=== PATIENT | female | born 1960 | race Caucasian/White ===

== ENCOUNTER 2022-02-03 15:18 | Emergency (ER) | payer BC, SELFPAY ==
[2022-02-03 15:29] VITALS: BP 118/78; PULSE 85; RESP 18; TEMP 36.8; O2SAT 96; BMI 21.9
[2022-02-03 15:30] VITALS: BP 118/78; PULSE 88; RESP 19; O2SAT 99
[2022-02-03 16:00] VITALS: BP 123/74; PULSE 123; O2SAT 98
--- NOTE | 2022-02-03 16:19 | ED.ARRPALP ---
HPI - Arrhythmia/Palpitations General Chief Complaint: Arrhythmia/Palpitations Stated Complaint: HIGH HEART RATE,LEFT ARM PAIN Time Seen by Provider: 02/03/22 15:46 History of Present Illness HPI narrative: This 61-year-old female comes in reporting some chest tightness in the left upper anterior chest and some tingling and symptoms in her left arm. She states that she bumped her left elbow about a week ago and triggered a Zinger from the ulnar nerve. Since then she has been having some of these symptoms. She does not have any nausea, vomiting, lightheadedness, shortness of breath, or diaphoresis. She does have good exercise tolerance and states that she frequently runs for exercise. She does not have any cardiac risk factors except states that her mother did have a valve replacement and coronary artery disease but she had diabetes and as a child had rheumatic fever. She states that she has been under stress at work and had an episode of chest discomfort and noted on her watch that her heart rate had increased to around 120 beats per minute. She arrives here with normal vital signs and heart rate around 80 beats per minute. She states that the chest discomfort is not reproducible with a deep breath, palpation, or or with certain movements. Related Data Home Medications Medication Instructions Recorded Confirmed No Known Home Medications 02/03/22 02/03/22 Allergies Allergy/AdvReac Type Severity Reaction Status Date / Time No Known Drug Allergies Allergy Verified 02/03/22 15:29 Review of Systems Status of ROS: Reports: 10 or more systems reviewed and unremarkable except as noted in History and below Narrative: Constitutional: No fevers, no weight gain or loss. Eyes: No discharge. No vision changes. HENT: No congestion, no sore throat, no ear pain. Cardiovascular: No palpitations. Chest discomfort as described above. Respiratory: No shortness of breath, no wheezes, no cough. Gastrointestinal: No abdominal pain, no vomiting, no diarrhea. Genitourinary: No dysuria, no hematuria. Musculoskeletal: Normal range of motion. Skin: No rashes, no pruritis. Neurological: No dizziness, weakness, sensory change, speech change. Endo/Heme/Allergies: No bruising or bleeding. No polydipsia. Pysch: no suicidality, no anxiety, no insomnia. All other systems reviewed and are negative. PFSH PFSH Social History Smoking Status: Never smoker Do you use any of these nicotine containing products: None Second hand tobacco smoke exposure: No How often do you have a drink containing alcohol: 4 or more times a week How many standard drinks containing alcohol do you have on a typical day: 1 or 2 How often do you have six or more drinks on one occasion: Never AUDIT-C Alcohol total score: 4 Non-prescribed substance use: denies use service: No Exam Narrative: Exam Narrative: Constitutional: Well-developed, well-nourished, no acute distress. HEENT: Normocephalic, atraumatic. Neck: Normal range of motion. Nontender. Supple. Heart: Regular. No murmurs. Normal rate. Intact distal pulses. Lungs: Clear to auscultation. No chest discomfort. No wheezes, rhonchi, or rales. Abdomen: Normal bowel sounds. Nontender. No rebound tenderness. Genitalia: Deferred. Back: No midline tenderness. Normal range of motion. Extremities: Normal range of motion. No injury. Skin: Intact. No rash. Warm. No erythema or pallor. Neurologic: No altered sensation. No weakness. Alert and oriented. Psychiatric: No suicidality. No anxiety or depression. No insomnia. Nursing notes and vitals signs are reviewed. Const: Vital Signs, click to edit/add: Vital Signs - 24 hr 02/03/22 15:29 Temperature 98.2 F Pulse Rate [Apical ] 85 Respiratory Rate 18 Blood Pressure [Ri ght Upper Arm] 118/78 Pulse Oximetry 96 Oxygen Delivery Me thod Room Air Course Vital Signs Vital signs: Initial Vital Signs Temperature 98.2 F 02/03/22 15:29 Temperature Source Temporal Artery Scan 02/03/22 15:29 Pulse Rate 85 02/03/22 15:29 Pulse Rhythm 02/03/22 15:29 Respiratory Rate 18 02/03/22 15:29 Blood Pressure 118/78 02/03/22 15:29 Blood Pressure Mean 91 02/03/22 15:29 Pulse Oximetry 96 02/03/22 15:29 Oxygen Delivery Method 02/03/22 15:29 Vital Signs Temperature 98.2 F 02/03/22 15:29 Pulse Rate 85 02/03/22 15:29 Respiratory Rate 18 02/03/22 15:29 Blood Pressure 118/78 02/03/22 15:29 Pulse Oximetry 96 02/03/22 15:29 Oxygen Delivery Method 02/03/22 15:29 Temperature 98.2 F 02/03/22 15:29 Pulse Rate 85 02/03/22 15:29 Respiratory Rate 18 02/03/22 15:29 Blood Pressure 118/78 02/03/22 15:29 Pulse Oximetry 96 02/03/22 15:29 Oxygen Delivery Method 02/03/22 15:29 MDM - Arrhythmia/Palpitations MDM Narrative Medical decision making narrative: This patient comes in with concern about some chest discomfort and tingling sensation in her left arm as described above. EKG today shows normal sinus rhythm without any ST or T-wave abnormalities. The patient has good exercise tolerance and frequently runs without any symptoms. Lab results today also returned with normal findings. Her troponin returns at 0. She was pleased with these results. She is okay to return home to continue current plans. More likely her pain is chest wall pain or atypical chest pain. Lab Data Labs: Lab Results 02/03/22 02/03/22 02/03/22 Range/Units 16:35 16:35 16:35 WBC 6.25 (4.50-11.00) K/uL RBC 4.22 (4.00-5.20) m/uL Hgb 12.9 (12.0-16.0) gm/dL Hct 37.6 (33.0-51.0) % MCV 89 (80-100) fL MCH 31 (26-34) pg MCHC 34 (32-36) gm/dL RDW Coeff of Yesi 12.0 (11.5-15.5) % Plt Count 194 (140-440) K/uL Neut % (Auto) 71.6 (42.0-72.0) % Lymph % (Auto) 19.5 L (20-44) % [place] % (Auto) 7.4 (0.0-11.0) % Eos % (Auto) 1.0 (0.0-7.0) % Baso % (Auto) 0.3 (0.0-3.0) % Neut # (Auto) 4.48 (1.7-7.0) K/uL Lymph # (Auto) 1.20 (0.90-2.90) K/uL [place] # (Auto) 0.50 (0.00-0.90) K/UL Eos # (Auto) 0.06 (0.00-0.50) K/uL Baso # (Auto) 0.02 (0.00-0.30) K/uL Abs Immat Gran (auto) 0.01 (0.00-0.30) K/uL Imm/Tot Granulo (auto) 0.2 % Sodium 136 (135-149) mmol/L Potassium 3.7 (3.6-5.1) mmol/L Chloride 101 (96-114) mmol/L Carbon Dioxide 27 (20-32) mmol/L BUN 14 (7-30) mg/dL Creatinine 0.6 (0.5-1.5) mg/dL Estimated Creat Clear 46.13 Estimated GFR 101 ml/min Glucose 106 (60-115) mg/dL Calcium 8.8 (8.4-10.6) mg/dL POC Troponin I 0.00 L (0.01-0.04) ng/ml ECG Data Attestation: I personally reviewed and interpreted this ECG as follows: Interpretation: Normal sinus rhythm. Rate is 77 beats per minute. There are no specific ST or T-wave abnormalities. Discharge Plan Discharge Clinical Impression: Atypical chest pain Patient Disposition: Home, Self-Care Condition: Stable Additional Instructions: Use [id number] medicines as needed and directed. Follow up with MD or return if worsening. Prescriptions: No Action No Known Home Medications Follow Up/Referrals: Wilbur Johnson MD [Primary Care Provider] - Stand Alone Forms: [employer] Info Instructions
[2022-02-03 16:39] LABS: Basophils Absolute Auto 0.02 K/uL (0.00-0.30); Basophils Percent Auto 0.3 % (0.0-3.0); Eosinophils Absolute Auto 0.06 K/uL (0.00-0.50); Hematocrit 37.6 % (33.0-51.0); Hemoglobin* 12.9 gm/dL (12.0-16.0); Immature Granulocytes Abs Auto 0.01 K/uL (0.00-0.30); Immature Granulocytes Pct Auto 0.2 %; Lymphocytes Percent Auto 19.5 % (20-44); Mean Corpuscular HGB Conc 34 gm/dL (32-36); Mean Corpuscular Hemoglobin 31 pg (26-34); Mean Corpuscular Volume 89 fL (80-100); Monocytes Percent Auto 7.4 % (0.0-11.0); Neutrophils Absolute Auto 4.48 K/uL (1.7-7.0); Neutrophils Percent Auto 71.6 % (42.0-72.0); Platelet Count* 194 K/uL (140-440); Red Blood Count 4.22 m/uL (4.00-5.20); White Blood Count* 6.25 K/uL (4.50-11.00)
[2022-02-03 16:51] LABS: Chloride* 101 mmol/L (96-114); Potassium* 3.7 mmol/L (3.6-5.1); Sodium* 136 mmol/L (135-149)
[2022-02-03 16:54] LABS: Blood Urea Nitrogen* 14 mg/dL (7-30); Carbon Dioxide* 27 mmol/L (20-32); Creatinine* 0.6 mg/dL (0.5-1.5); Est. Creatinine Clearance* 46.13; Estimated Glomerular Filt Rate 101 ml/min
[2022-02-03 16:55] LABS: Calcium* 8.8 mg/dL (8.4-10.6); Glucose* 106 mg/dL (60-115)
[2022-02-03 16:59] LABS: Slide Review Reflex No
[2022-02-03 17:00] VITALS: BP 117/71; PULSE 69; RESP 14; O2SAT 95
== END 2022-02-03 17:26 | disposition home or self-care (01) ==
PROVIDERS: Emergency Provider Emergency Medicine Emergency Medical Services; PCP Family Medicine
DX: R07.89 Other chest pain (principal)
CPT/HCPCS: 36415; 80048; 85025; 93005; 99283; 99284